=== PATIENT | female | born 1945 | race Caucasian/White ===

== ENCOUNTER 2021-01-11 14:30 | Emergency (ER) | payer MEDICARE, SELFPAY ==
--- NOTE | 2021-01-11 14:40 | ED.ASTHMA ---
HPI - Asthma General Chief Complaint: Upper Respiratory Infection Stated Complaint: cough*/sob Source: patient Mode of arrival: ambulatory Limitations: no limitations History of Present Illness HPI Narrative: Adriana Gross is a 75 yo female with a PMH of asthma who is here for asthma exacerbation and shortness of breath. Started on Tuesday; shortness of breath is more pronounced today - currently on Advair montelukast ProAir-patient denies being around anyone that is ill and states the change in temperature and ear pressure as well as seasonal butting can set off her allergies. Plan is to continue with Solu-Medrol and a nebulizer treatment Related Data Home Medications Medication Instructions Recorded Confirmed Alavert D-12 Allergy-Sinus 01/11/21 Hair,Skin and Nails 01/11/21 L-Lysine 01/11/21 PreserVision AREDS-2 01/11/21 ProAir HFA 01/11/21 Vitamin B-12 01/11/21 amlodipine [Norvasc] 01/11/21 astaxanthin 01/11/21 cholecalciferol (vitamin D3) 01/11/21 cranberry 01/11/21 fluticasone propion-salmeterol INHALATION 01/11/21 [Advair Diskus] montelukast [Singulair] mg 01/11/21 omeprazole [Prilosec] 01/11/21 prednisone 01/11/21 Allergies Allergy/AdvReac Type Severity Reaction Status Date / Time No Known Allergies Allergy Verified 01/11/21 14:52 Review of Systems Review of Systems: Narrative: CONSTITUTIONAL: Denies fever, chills, sweats. EYES: Denies visual changes, redness, discharge. ENT: Denies rhinorrhea, congestion, sore throat, otalgia. CARDIOVASCULAR: Denies chest pain, palpitations, edema.has sob RESPIRATORY: Has dyspnea, wheezing, cough; sob GASTROINTESTINAL: Denies abdominal pain, nausea, vomiting, diarrhea. GENITOURINARY: Denies dysuria, hematuria, abnormal discharge SKIN: Denies rash or itching. NEUROLOGIC: Denies numbness, or focal weakness. PSYCHIATRIC: Has anxiety; no depression. [facility] Past Medical History Medical History Asthma Family History Family History (Updated 01/11/21 @ 16:01 by Nkechi Otero CNP) Other Heart disease Hypertension Social History Social History (Updated 01/11/21 @ 16:01 by Nkechi Otero CNP) Smoking status: Never smoker Alcohol intake: never Gender identity (if verbalized by the patient): Female Comments At time of signature, I agree with nursing past medical, surgical, social and family history. There is no relevant family history pertinent to the presenting complaint. Exam Narrative: Exam Narrative: GENERAL: This is a well-nourished, well-developed patient, in moderate distress. Anxious; pale HEAD: normocephalic, atraumatic. EYES: Sclera clear/white. Vision is grossly intact. EARS: External ears normal, . Hearing grossly intact. NOSE: External nose normal without nasal discharge, nares without redness, no rhinorrhea. THROAT: Mucous membranes moist, NECK: Neck supple, CARDIOVASCULAR: Tachycardic rate and rhythm without murmurs, gallops, or rubs. RESPIRATORY: Coarse to auscultation. Breath sounds equal bilaterally. No wheezes, rales, or rhonchi. GASTROINTESTINAL: Abdomen soft, non-tender, SKIN: warm, intact with no suspicious lesions or rash, good texture and turgor. NEURO: awake, alert, and oriented to person, place and time. There were no obvious focal neurologic abnormalities. Steady gait EXTREMITIES: Normal range of motion. BACK: Nontender without deformity Course Course Emergency Course: Patient is here for an asthma exacerbation is anxious, O2 sats are 97% but patient feels very short of breath and is tight Solu-Medrol 125 mg and nebulizer treatment of Atrovent and albuterol Re=evauation: [place] re clearer, no anxiety , patient states feels much better On discharge: Prednisone 40 mg x 5 days, , refill on albuterol inhaler Vital Signs Vital signs: Vital Signs Temperature 97.2 F L 01/11/21 14:42 Pulse Rate 93 01/11/21 14:42 Respirator
[2021-01-11 14:42] VITALS: BP 138/80; PULSE 93; RESP 16; TEMP 36.2; O2SAT 97
[2021-01-11] MEDS: methylPREDNISolone SOD SUCC 125 MG VIAL IM (14:53)
[2021-01-11] MEDS: ALBUTEROL SULFATE NEB 2.5 MG/3 ML INH INHALATION (14:54)
[2021-01-11] MEDS: IPRATROPIUM BR 0.02% INH SOLN 0.5 MG/2.5 ML VIAL 1.5 MG INHALATION (14:54)
== END 2021-01-11 16:02 | disposition home or self-care (01) ==
PROVIDERS: Emergency Provider Nurse Practitioner; PCP Internal Medicine
DX: J45.41 Moderate persistent asthma with (acute) exacerbation (principal)
CPT/HCPCS: 94640; 96372; 99203; G0463; J2930